=== PATIENT | female | born 1970 | race Caucasian/White ===

== ENCOUNTER 2018-06-05 09:01 | Emergency (ER) | payer MEDICAID ==
[~2018-06-05] VITALS: Ht 167.6 cm; Wt 64.4 kg
[2018-06-05 09:03] VITALS: BP 106/78
--- NOTE | 2018-06-05 09:10 | NUR ---
PT AMBULATED TO BED 5
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
--- NOTE | 2018-06-05 09:22 | NUR ---
RECTAL EXAM BY DR. TREJO, SHAPERONED BY ME.
[2018-06-05 09:39] VITALS: BP 106/78
--- NOTE | 2018-06-05 09:39 | NUR ---
Patient discharged with v/s stable. Written and verbal after care instructions given and explained. Patient alert, oriented and verbalized understanding of instructions. Ambulatory with steady gait. All questions addressed prior to discharge. ID band removed. Patient advised to follow up with PMD. Rx of COLACE, ANUSOL HC given. Patient educated on indication of medication including possible reaction and side effects. Opportunity to ask questions provided and answered.
== END 2018-06-05 09:39 | disposition home or self-care (01) ==
LOC: MED 09:01
DX: K64.4 Residual hemorrhoidal skin tags (principal); Z88.6 Allergy status to analgesic agent
CPT/HCPCS: 99282

== ENCOUNTER 2021-04-15 08:46 | Emergency (ER) | payer SELFPAY ==
[~2021-04-15] VITALS: Ht 167.6 cm; Wt 72.6 kg
[2021-04-15 08:49] VITALS: BP 129/83
[2021-04-15] MEDS ORDERED: LIDOCAINE MPF 1% 10 MG/ML VIAL INJ ONE (09:05)
[2021-04-15] MEDS ORDERED: NAPR-54 PO (09:37)
[2021-04-15] MEDS ORDERED: BACITRACIN OINT 500 UNITS/GM PKT TP ONE (09:45)
[2021-04-15 09:57] VITALS: BP 129/83
== END 2021-04-15 09:57 | disposition home or self-care (01) ==
LOC: MED 08:46
DX: S91.312A Laceration without foreign body, left foot, initial encounter (principal); W25.XXXA Contact with sharp glass, initial encounter; Y93.89 Activity, other specified; Y92.89 Other specified places as the place of occurrence of the external cause; Y99.8 Other external cause status
CPT/HCPCS: 12001; 73630; 90471; 90715; 99284; J2001

== ENCOUNTER 2021-04-22 12:07 | Emergency (ER) | payer SELFPAY ==
[~2021-04-22] VITALS: Ht 167.6 cm; Wt 74.8 kg
[~2021-04-22 12:07] MED LIST: NAPR-54 PO
[2021-04-22 12:09] VITALS: BP 113/54
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
--- NOTE | 2021-04-22 12:19 | NUR ---
ERMD AT BEDSIDE EXAMINING PT
[2021-04-22 12:33] VITALS: BP 113/54
--- NOTE | 2021-04-22 12:33 | NUR ---
Patient discharged with v/s stable. Written and verbal after care instructions given and explained. Patient verbalized understanding. Ambulatory with steady gait. All questions addressed prior to discharge. Advised to follow up with PMD.
== END 2021-04-22 12:33 | disposition home or self-care (01) ==
LOC: MED 12:07
DX: S91.312D Laceration without foreign body, left foot, subsequent encounter (principal); X58.XXXD Exposure to other specified factors, subsequent encounter
CPT/HCPCS: 99281